=== PATIENT | male | born 1985 | race African-American/Black ===

== ENCOUNTER 2020-12-07 21:52 | Emergency (ER) | payer OTHER ==
[2020-12-07 23:19] LABS: BASOPHIL 0.6 % (0-2); EOSINOPHIL 0.6 % (0-5); HCT 47.1 % (42.0-52.0); LYMPHOCYTE 13.5 % (15-48); MCH 28.2 pg (25.0-31.0); MCV 82.9 fL (78.0-100.0); MONOCYTE 9.8 % (0-12); MPV 10.5 fL (6.0-9.5); NRBC 0; PLT 256 K/uL (150-400); RBC 5.68 M/uL (4.70-6.00); RDW 14.5 % (11.5-14.0); WBC 14.4 K/uL (4.0-10.5)
[2020-12-07 23:21] LABS: AMPHETAMINES NEGATIVE (NEGATIVE); BARBITURATES NEGATIVE (NEGATIVE); BILIRUBIN NEGATIVE (NEGATIVE); BLOOD NEGATIVE Ery/uL (NEGATIVE); CLARITY CLEAR (CLEAR); COLOR YELLOW (YELLOW); ECSTASY (MDMA) NEGATIVE (NEGATIVE); GLUCOSE (U) NORMAL (NORMAL); LEUKOCYTES NEGATIVE Leu/uL (NEGATIVE); MARIJUANA (THC) POSITIVE (NEGATIVE); METHADONE NEGATIVE (NEGATIVE); NITRITE NEGATIVE (NEGATIVE); OPIATES NEGATIVE (NEGATIVE); OXYCODONE NEGATIVE (NEGATIVE); PROTEIN NEGATIVE (NEGATIVE); SPECIFIC GRAVITY <=1.005 (1.001-1.030); UROBILINOGEN 0.2 mg/dL (0.2-1.0)
[2020-12-07 23:45] LABS: ALBUMIN 4.2 g/dL (3.4-5.0); BILIRUBIN - TOTAL 0.3 mg/dL (0.2-1.0); BUN/CREAT RATIO (CALC) 10.9 RATIO; CREATININE 1.01 mg/dL (0.67-1.17); FT4 (FREE T4) 1.7 ng/dL (0.76-1.46); GLOBULIN (CALCULATION) 3.4 g/dL; POTASSIUM 3.4 mmol/L (3.5-5.1); TOTAL PROTEIN 7.6 g/dL (6.4-8.2)
== END 2020-12-08 07:15 ==
LOC: FER 21:52
PROVIDERS: Emergency Medicine Emergency Medical Services
DX: F31.9 Bipolar disorder, unspecified (principal); F29 Unspecified psychosis not due to a substance or known physiological condition; J45.909 Unspecified asthma, uncomplicated; F17.210 Nicotine dependence, cigarettes, uncomplicated; Z20.822 Contact with and (suspected) exposure to COVID-19
CPT/HCPCS: 36415; 70450; 71045; 80053; 80305; 81003; 84439; 84443; 85025; 85379; 93005; 96372; J2060; J7030; U0002